=== PATIENT | male | born 1980 | race Caucasian/White ===

== ENCOUNTER 2020-02-01 10:16 | Emergency (ER) | payer SELFPAY ==
[2020-02-01 10:27] VITALS: BP 139/87; PULSE 63; RESP 14; TEMP 36.6; O2SAT 100
--- NOTE | 2020-02-01 11:51 | ED_ITS ---
HPI - Extremity Injury (Lower) General Chief Complaint: Extremity Injury, Lower Stated Complaint: Hornet sting discolored Time Seen by Provider: 02/01/20 11:21 Source: patient Mode of arrival: ambulatory Limitations: no limitations History of Present Illness HPI Narrative: This is a 39 year old male that presents to the ER for insect sting two days ago to the left ankle. Reports since he has had increasing swelling in the area. Also reports pain and itching. Reports some redness. Patient is up-to-date on tetanus. Denies fever or discharge. Related Data Allergies Allergy/AdvReac Type Severity Reaction Status Date / Time No Known Allergies Allergy Unverified 08/07/13 17:00 Review of Systems Review of Systems: Narrative: CONSTITUTIONAL: Denies fever SKIN: Reports rash and itching. MUSCULOSKELETAL: Reports joint pain All systems reviewed & are unremarkable except as noted in HPI and below PMFSH Surgical History Surgical History (Updated 02/01/20 @ 11:52 by Mandy Conklin PA-C) History of appendectomy Social History Social History (Updated 02/01/20 @ 11:53 by Mandy Conklin PA-C) Substance use: never Exam Narrative: Exam Narrative: GENERAL: Well-appearing, well-nourished, and in no acute distress. HEAD: Normocephalic, atraumatic. EYES: EOMI. EXTREMITIES: Left medial ankle with mild edema and redness. Normal range of motion. Normal DP pulses. Normal sensation SKIN: Warm, dry. NEURO: No focal deficits. Alert and oriented x3. PSYCH: Normal mood and affect Course Vital Signs Vital signs: Vital Signs Temperature 97.8 F 02/01/20 10:27 Pulse Rate 63 02/01/20 10:27 Respiratory Rate 14 02/01/20 10:27 Blood Pressure 139/87 02/01/20 10:27 Pulse Oximetry 100 02/01/20 10:27 Temperature 97.8 F 02/01/20 10:27 Pulse Rate 63 02/01/20 10:27 Respiratory Rate 14 02/01/20 10:27 Blood Pressure 139/87 02/01/20 10:27 Pulse Oximetry 100 02/01/20 10:27 MDM - Extremity Injury (Lower) MDM Narrative Medical decision making narrative: Patient presents to the emergency department for insect sting 2 days ago. He is afebrile and nontoxic-appearing. Up-to-date on tetanus. Mild redness and edema surrounding where insect sting was. Patient will be placed on oral antibiotic. He was instructed on antihistamines for itc marcy. He is to follow-up with primary care doctor. He was given warnings to return to the ER Critical Care Time Critical Care Time Critical Care Time: No Discharge Plan Discharge Clinical Impression: Insect bite or sting Patient Disposition: Home, Self-Care Condition: Stable Instructions: Antibiotic Form, Insect Bite or Sting (ED) Additional Instructions: Return if symptoms worsen or concerns: any increase in redness, swelling, pain, or fever over 101 Take antibiotics as directed. Clean wound with mild soapy water. Take a Pepcid and Claritin daily for itching. Benadryl as needed for severe itching Follow up with primary care doctor Prescriptions: New cephalexin 500 mg capsule 500 mg PO Q8H 5 Days Qty: 15 RF: 0 Follow-up/Referrals: PHYSICIAN,ADJUSTER ARBITRATOR [Primary Care Provider] - Mike Arias MD [Physician] - 1 Week
[2020-02-01 12:04] VITALS: BP 132/70; PULSE 78; RESP 20; O2SAT 99
== END 2020-02-01 12:06 | disposition home or self-care (01) ==
PROVIDERS: Emergency Provider Emergency Medicine
DX: T63.451A Toxic effect of venom of hornets, accidental (unintentional), initial encounter (principal)
CPT/HCPCS: 99283

== ENCOUNTER 2020-10-21 10:11 | Emergency (ER) | payer SELFPAY ==
[2020-10-21 10:14] VITALS: BP 146/85; PULSE 81; RESP 18; TEMP 36.4; O2SAT 100
--- NOTE | 2020-10-21 10:35 | ED.BACK ---
HPI - Back Pain/Injury General Chief Complaint: Back Pain/Injury Stated Complaint: back pain Time Seen by Provider: 10/21/20 10:25 Source: patient Mode of arrival: ambulatory Limitations: no limitations History of Present Illness HPI Narrative: Patient is 40 years old white male came to the emergency room because of pain across lumbar area started 2 days ago, 1 day after moving furniture to his daughter room. Patient denies radiation of pain, nausea, vomiting, urinary symptoms, or focal neurologic deficit Related Data Allergies Allergy/AdvReac Type Severity Reaction Status Date / Time No Known Allergies Allergy Unverified 10/21/20 10:18 Review of Systems Review of Systems: Narrative: CONSTITUTIONAL: Denies fever, chills, or sweats. EYES: Denies visual changes, redness, or discharge. ENT: Denies rhinorrhea, congestion, sore throat, or otalgia. CARDIOVASCULAR: Denies chest pain, palpitations, or edema. RESPIRATORY: Denies cough or dyspnea. GASTROINTESTINAL: Denies abdominal pain, nausea, vomiting, or diarrhea. GENITOURINARY: Denies dysuria or hematuria. SKIN: Denies rash or itching. MUSCULOSKELETAL: Denies back pain, joint pain, or myalgia. NEUROLOGIC: Denies headache, numbness, or weakness. PSYCHIATRIC: Denies anxiety or depression. [facility] History Surgical History History of appendectomy Social History Social History Substance use: never Gender identity (if verbalized by the patient): Male Exam Narrative: Exam Narrative: General appearance: Well-developed, well-nourished Skin: Normal color Head: Normocephalic, nontraumatic Eyes: Clear conjunctiva ENT: Oropharynx normal, ears normal, nose normal Neck: Supple, nontender Chest and respiratory: Airway patent, no respiratory distress, no accessory muscle use Heart: Regular rate/rhythm Abdomen: Soft, nontender, no organomegaly, quiet bowel sounds Vascular: Normal peripheral pulses, normal capillary refill. Musculoskeletal: Diffuse mild tenderness across lumbar area, no bruises, no swelling, no rash, limited range of motion Neurologic: Alert and oriented ?3, BAT LATHE OPERATOR is normal as tested, no gross motor deficit Course Course Emergency Course: Stable Vital Signs Vital signs: Vital Signs Temperature 36.4 C L 10/21/20 10:14 Pulse Rate 81 10/21/20 10:14 Respiratory Rate 18 10/21/20 10:14 Blood Pressure 146/85 H 10/21/20 10:14 Pulse Oximetry 100 10/21/20 10:14 Temperature 36.4 C L 10/21/20 10:14 Pulse Rate 81 10/21/20 10:14 Respiratory Rate 18 10/21/20 10:14 Blood Pressure 146/85 H 10/21/20 10:14 Pulse Oximetry 100 10/21/20 10:14 MDM - Back Pain/Injury MDM Narrative Medical decision making narrative: Lower back muscular strain/sprain is my concern. Toradol IM ordered. Patient will be discharged naproxen and Flexeril to follow-up with his family physician for further evaluation and physical therapy Differential Diagnosis Differential diagnosis: Likely strain of lumbar region Critical Care Time Critical Care Time Critical Care Time: No Discharge Plan Discharge Clinical Impression: Strain of lumbar region Qualifiers: Encounter type: initial encounter Qualified Code(s): S39.012A - Strain of muscle, fascia and tendon of lower back, initial encounter Patient Disposition: Home, Self-Care Condition: Stable Instructions: Low Back Strain (ED), Lower Back Exercises (ED) Additional Instructions: Return if symptoms are worsening , call your family physician for appointment, take Tylenol as as needed for aches and pain, continue home medicati
[2020-10-21] MEDS: KETOROLAC (*BKC) 60 MG/2 ML VIAL IM (10:40)
[2020-10-21 11:39] VITALS: BP 135/86; PULSE 69; RESP 18; O2SAT 100
== END 2020-10-21 11:41 | disposition home or self-care (01) ==
PROVIDERS: Emergency Provider Emergency Medicine
DX: S39.012A Strain of muscle, fascia and tendon of lower back, initial encounter (principal); X50.0XXA Overexertion from strenuous movement or load, initial encounter
CPT/HCPCS: 96372; 99283; J1885